=== PATIENT | male | born 1980 | race Caucasian/White ===

== ENCOUNTER 2018-02-18 14:53 | Emergency (ER) | payer OTHER ==
[~2018-02-18] VITALS: Ht 167.6 cm; Wt 69.4 kg
[2018-02-18 15:05] VITALS: BP 143/89
--- NOTE | 2018-02-18 15:11 | NUR ---
patient to lobby with steady gait awaiting available room. vss
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
[2018-02-18] MEDS ORDERED: IBUPROFEN 600 MG TAB PO ONE (15:35)
[2018-02-18] MEDS ORDERED: LIDOCAINE 2% 1000 MG/50 ML VIAL INJ ONE (15:35)
[2018-02-18 17:51] VITALS: BP 132/78
--- NOTE | 2018-02-18 17:52 | NUR ---
Patient discharged with v/s stable. Written and verbal after care instructions given and explained. Patient alert, oriented and verbalized understanding of instructions. Ambulatory with steady gait. All questions addressed prior to discharge. ID band removed. Patient advised to follow up with PMD. Rx of KEFLEX/BACITRACIN/IBUPROFEN given. Patient educated on indication of medication including possible reaction and side effects. Opportunity to ask questions provided and answered.
== END 2018-02-18 17:52 | disposition home or self-care (01) ==
LOC: MED 14:53
DX: S61.511A Laceration without foreign body of right wrist, initial encounter (principal); W25.XXXA Contact with sharp glass, initial encounter; Y93.89 Activity, other specified; Y92.89 Other specified places as the place of occurrence of the external cause; Y99.8 Other external cause status
CPT/HCPCS: 12002; 73090; 99284; J2001; Q0092

== ENCOUNTER 2018-04-09 20:32 | Emergency (ER) | payer OTHER ==
[~2018-04-09] VITALS: Ht 167.6 cm; Wt 74.8 kg
[2018-04-09 20:46] VITALS: BP 126/82
--- NOTE | 2018-04-09 20:51 | NUR ---
PT SENT TO LOBBY EVEN STEADY GAIT, VSS.
--- NOTE | 2018-04-09 21:40 | NUR ---
TO ER BED 11
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
[2018-04-09] MEDS ORDERED: KETOROLAC 60 MG/2 ML VIAL IM ONE (22:40)
--- NOTE | 2018-04-09 22:51 | NUR ---
PT REQUESTED TO HAVE 60MG/2ML TORADOL IM ON L AND R DELTOID INSTEAD OF GLUTEUS CRISTIANO.
[2018-04-09 23:08] VITALS: BP 146/88
--- NOTE | 2018-04-09 23:08 | NUR ---
Patient discharged with v/s stable. Written and verbal after care instructions given and explained. Patient alert, oriented and verbalized understanding of instructions. Ambulatory with steady gait. All questions addressed prior to discharge. ID band removed. Patient advised to follow up with PMD. Rx of ROBAXIN, MOTRIN, TRAMADOL given. Patient educated on indication of medication including possible reaction and side effects. Opportunity to ask questions provided and answered.
== END 2018-04-09 23:08 | disposition home or self-care (01) ==
LOC: MED 20:32
DX: S13.4XXA Sprain of ligaments of cervical spine, initial encounter (principal); V89.2XXA Person injured in unspecified motor-vehicle accident, traffic, initial encounter; Y93.89 Activity, other specified; Y92.89 Other specified places as the place of occurrence of the external cause; Y99.8 Other external cause status
CPT/HCPCS: 72050; 96372; 99284; J1885

== ENCOUNTER 2018-04-10 17:04 | Emergency (ER) | payer OTHER ==
[~2018-04-10] VITALS: Ht 167.6 cm; Wt 73.9 kg
[2018-04-10 17:20] VITALS: BP 137/92
[2018-04-10] MEDS: LIDOCAINE 1% 500 MG/50 ML VIAL INJ SCH (19:15)
[2018-04-10 19:20] VITALS: BP 137/90
== END 2018-04-10 19:20 | disposition home or self-care (01) ==
LOC: MED 17:04
DX: S13.4XXA Sprain of ligaments of cervical spine, initial encounter (principal); M62.838 Other muscle spasm; V43.52XA Car driver injured in collision with other type car in traffic accident, initial encounter; Y93.I9 Activity, other involving external motion; Y92.488 Other paved roadways as the place of occurrence of the external cause; Y99.8 Other external cause status
CPT/HCPCS: 20552; 99284; J2001

== ENCOUNTER 2019-01-30 11:00 | Emergency (ER) | payer OTHER ==
[~2019-01-30] VITALS: Ht 167.6 cm; Wt 66.5 kg
[2019-01-30 11:04] VITALS: BP 132/90
--- NOTE | 2019-01-30 11:10 | NUR ---
PT AMBULATED TO ER BED 8
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
--- NOTE | 2019-01-30 11:25 | NUR ---
DR. FORTUNE BEDSIDE EVALUATING PT
[2019-01-30] MEDS ORDERED: HYDROcodone/APAP 5/325 MG 1 TAB TAB PO ONE (11:40)
--- NOTE | 2019-01-30 11:49 | NUR ---
PT TAKEN TO RAD VIA WC
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
--- NOTE | 2019-01-30 12:49 | NUR ---
PT IS RESTING IN BED WITH EYES CLOSED.
[2019-01-30 14:44] VITALS: BP 122/78
== END 2019-01-30 14:10 | disposition home or self-care (01) ==
LOC: MED 11:00
DX: G89.29 Other chronic pain (principal); M54.5 Low back pain; R42 Dizziness and giddiness; M54.6 Pain in thoracic spine; R51 Headache; M54.2 Cervicalgia; R20.0 Anesthesia of skin; E16.2 Hypoglycemia, unspecified; R53.1 Weakness; F17.200 Nicotine dependence, unspecified, uncomplicated
CPT/HCPCS: 72110; 99283